=== PATIENT | male | born 1955 | race Caucasian/White ===

== ENCOUNTER → 2019-08-20 | Day surgery (SDC) | payer OTHER ==
[~2019-08-20] MED LIST: ACETAMINOPHEN 325 MG TABLET PO PRN; ALBUTEROL SULFATE 2.5 MG/3 ML NEBU. NEB PRN; ALLO100T PO; AMLO10TA8 PO; ATROPINE 0.5 MG/5 ML DISP.SYRIN. IV PRN; BALANCED SALT IRRIG OPHTH SOLN 15 ML BOTTLE. IRR ONE; CATARACT OPHTH GEL 0.5 ML SYRINGE. OD ONE; CHONDROIT-SOD-HYALURONATE KIT. OD ONE; EPINEPHrine AMPULE 0.5 MG in BALANCED SALT IRRIG SOLN PLUS 500 ML IO ONE; ERYTHROMYCIN 0.5% OPHTH OINTMENT 1GM TUBE. OD ONE; FERR325T14 PO; FOLI0.8C PO; HYALURONIDASE 75UNITS in LIDOCAINE 2% PF OPHTH 10 ML SYRINGE. OD ONE; HYDR-2145 PO; KETOROLAC TROMETHAMINE 0.5% OPHTH SOLUTION BOTTLE. OD SCH; KETOROLAC TROMETHAMINE 0.5% OPHTH SOLUTION BOTTLE. ONE; LIDO/EPI IN BSS OPHTH 8 ML SYRINGE OD PRN; MAGN27TA5 PO; METO25TA4 PO; MOXIFLOXACIN 0.5% OPHTH SOLUTION 3ML BOTTLE. OD SCH; ONDANSETRON PF 4 MG/2 ML VIAL. IV PRN; PHENOL ORAL SPRAY 177ML BOTTLE. MM PRN; POVIDONE-IODINE 5% OPHTH SOLUTION 30ML BOTTLE. OD ONE; PROPOFOL 20 ML IV ONE; TETRACAINE 0.5% OPHTH SOLUTION 4ML BOTTLE. OD ONE; TETRACAINE 0.5% OPHTH SOLUTION 4ML BOTTLE. OU ONE; [UNRECOGNIZED DRUG - OTHER] OU; diphenhydrAMINE 50 MG/ML VIAL IV PRN; prednisoLONE ACETATE 1% OPHTH SUSPENSION 5ML BOTTLE. OD SCH; prednisoLONE ACETATE 1% OPHTH SUSPENSION 5ML BOTTLE. ONE
[2019-08-20] MEDS: MOXIFLOXACIN 0.5% OPHTH SOLUTION 3ML BOTTLE. OD SCH ×3 (08:52→09:03)
--- NOTE | 2019-08-20 09:47 | PDOC4 ---
CATARACT Operative Report DATE DATE: 08/20/19 TIME: 09:46 Operation Performed OPERATIVE REPORT Name: Ailyn Pace Operation Date: Preoperative Diagnosis: 1. Senile cataract, RIGHT eye. 2. Inadequate pupillary dilation. Postoperative Diagnosis: 1. Senile cataract, RIGHT eye. 2. Inadequate pupillary dilation. Operation: 1. Phacoemulsification with posterior chamber intraocular lens implant. 2. Iris stretching via placement of Malyugan ring. Surgeon: Zhen Asif D.O. Anesthesia: Local with monitored anesthesia care Description of Operation: Under cardiac monitoring and mild IV sedation, the patient received peribulbar anesthesia in the holding area. Pressure was applied to the eye with a Honan balloon for approximately 10 minutes. The patient was taken to the operating room and placed in a supine position and the periorbital region was prepped and draped in the usual sterile fashion. A lid speculum was placed between the eyelids. A temporal clear corneal incision was made with a keratome. 1 cc of epi-Shugarcaine was injected into the anterior chamber. Viscoelastic was injected into the eye. A side port incision was made three clock hours to the left of the clear corneal incision. Due to continued poor dilation not responsive to epi-Shugarcaine, a Malyugan ring was placed. A cystotome and capsule forceps were used to make a continuous tear capsulorhexus. Hydrodissection was performed with balanced salt solution. The phacoemulsification needle was placed into the eye and the cataract was removed. The remaining cortical material was removed with the irrigation and aspiration apparatus. The posterior capsule was noted to be clean and intact. Viscoelastic was injected into the eye inflating the capsular bag. A foldable intraocular lens was injected into the eye, unfolding as desired, and positioned in the capsular bag. The Malyugan ring was then removed from the eye. The viscoelastic was aspirated from the eye. The wound edges were hydrated with balanced salt solution. There were no wound leaks. Viscoelastic was injected over the side port and clear corneal incisions. One drop of Vigamox and one drop of prednisolone acetate were instilled into the eye. The lid speculum was removed and a pressure dressing with a David shield was placed over the eye. The patient was taken to the recovery room in good condition. AILYN ASIF DO Aug 20, 2019 09:47
[2019-08-20 10:00] VITALS: BP 141/89
== END | disposition home or self-care (01) ==
LOC: SURG 07:49
PROVIDERS: ATTEND Ophthalmology
DX: H25.11 Age-related nuclear cataract, right eye (principal); J44.9 Chronic obstructive pulmonary disease, unspecified; E78.00 Pure hypercholesterolemia, unspecified; K21.9 Gastro-esophageal reflux disease without esophagitis; D64.9 Anemia, unspecified; I10 Essential (primary) hypertension; Z79.899 Other long term (current) drug therapy; Z98.890 Other specified postprocedural states; Z88.8 Allergy status to other drugs, medicaments and biological substances
CPT/HCPCS: 66982; J0171; J2704; V2632

== ENCOUNTER → 2019-09-10 | Day surgery (SDC) | payer OTHER ==
[~2019-09-10] MED LIST changes: +BALANCED SALT IRRIG OPHTH SOLN 15 ML BOTTLE. ONE; -CATARACT OPHTH GEL 0.5 ML SYRINGE. OD ONE; +CATARACT OPHTH GEL 0.5 ML SYRINGE. ONE; +CATARACT OPHTH GEL 0.5 ML SYRINGE. OS ONE; -CHONDROIT-SOD-HYALURONATE KIT. OD ONE; +CHONDROIT-SOD-HYALURONATE KIT. ONE; +CHONDROIT-SOD-HYALURONATE KIT. OS ONE; -ERYTHROMYCIN 0.5% OPHTH OINTMENT 1GM TUBE. OD ONE; +ERYTHROMYCIN 0.5% OPHTH OINTMENT 1GM TUBE. ONE; +ERYTHROMYCIN 0.5% OPHTH OINTMENT 1GM TUBE. OS ONE; -HYALURONIDASE 75UNITS in LIDOCAINE 2% PF OPHTH 10 ML SYRINGE. OD ONE; +HYALURONIDASE 75UNITS in LIDOCAINE 2% PF OPHTH 10 ML SYRINGE. OS ONE; -KETOROLAC TROMETHAMINE 0.5% OPHTH SOLUTION BOTTLE. OD SCH; +KETOROLAC TROMETHAMINE 0.5% OPHTH SOLUTION BOTTLE. OS SCH; +LIDO/EPI IN BSS OPHTH 4 ML SYRINGE OS ONE; -LIDO/EPI IN BSS OPHTH 8 ML SYRINGE OD PRN; -MOXIFLOXACIN 0.5% OPHTH SOLUTION 3ML BOTTLE. OD SCH; +MOXIFLOXACIN 0.5% OPHTH SOLUTION 3ML BOTTLE. ONE; +MOXIFLOXACIN 0.5% OPHTH SOLUTION 3ML BOTTLE. OS SCH; -PHENOL ORAL SPRAY 177ML BOTTLE. MM PRN; -POVIDONE-IODINE 5% OPHTH SOLUTION 30ML BOTTLE. OD ONE; +POVIDONE-IODINE 5% OPHTH SOLUTION 30ML BOTTLE. ONE; +POVIDONE-IODINE 5% OPHTH SOLUTION 30ML BOTTLE. OS ONE; -TETRACAINE 0.5% OPHTH SOLUTION 4ML BOTTLE. OD ONE; +TETRACAINE 0.5% OPHTH SOLUTION 4ML BOTTLE. ONE; +TETRACAINE 0.5% OPHTH SOLUTION 4ML BOTTLE. OS ONE; +TOBRAMYCIN 0.3% OPHTH SOLUTION 5ML BOTTLE. OS SCH; -prednisoLONE ACETATE 1% OPHTH SUSPENSION 5ML BOTTLE. OD SCH; +prednisoLONE ACETATE 1% OPHTH SUSPENSION 5ML BOTTLE. OS SCH
[2019-09-10] MEDS: MOXIFLOXACIN 0.5% OPHTH SOLUTION 3ML BOTTLE. OS SCH ×3 (08:40→08:50)
--- NOTE | 2019-09-10 09:43 | PDOC4 ---
CATARACT Operative Report DATE DATE: 09/10/19 TIME: 09:39 Operation Performed OPERATIVE REPORT Name: Ailyn Pace Operation Date: Preoperative Diagnosis: 1. Senile cataract, LEFT eye. 2. Inadequate pupillary dilation. Postoperative Diagnosis: 1. Senile cataract, LEFT eye. 2. Inadequate pupillary dilation. Operation: 1. Phacoemulsification with posterior chamber intraocular lens implant. 2. Iris stretching via placement of Malyugan ring. Surgeon: Zhen Asif D.O. Anesthesia: Local with monitored anesthesia care Description of Operation: Under cardiac monitoring and mild IV sedation, the patient received peribulbar anesthesia in the holding area. Pressure was applied to the eye with a Honan balloon for approximately 10 minutes. The patient was taken to the operating room and placed in a supine position and the periorbital region was prepped and draped in the usual sterile fashion. A lid speculum was placed between the eyelids. A temporal clear corneal incision was made with a keratome. 1 cc of epi-Shugarcaine was injected into the anterior chamber. Viscoelastic was injected into the eye. A side port incision was made three clock hours to the left of the clear corneal incision. Due to continued poor dilation not responsive to epi-Shugarcaine, a Malyugan ring was placed. A cystotome and capsule forceps were used to make a continuous tear capsulorhexus. Hydrodissection was performed with balanced salt solution. The phacoemulsification needle was placed into the eye and the cataract was removed. The remaining cortical material was removed with the irrigation and aspiration apparatus. The posterior capsule was noted to be clean and intact. Viscoelastic was injected into the eye inflating the capsular bag. A foldable intraocular lens was injected into the eye, unfolding as desired, and positioned in the capsular bag. The Malyugan ring was then removed from the eye. The viscoelastic was aspirated from the eye. The wound edges were hydrated with balanced salt solution. There were no wound leaks. Viscoelastic was injected over the side port and clear corneal incisions. One drop of Vigamox and one drop of prednisolone acetate were instilled into the eye. The lid speculum was removed and a pressure dressing with a David shield was placed over the eye. The patient was taken to the recovery room in good condition. AILYN ASIF DO Sep 10, 2019 09:43
[2019-09-10 09:51] VITALS: BP 133/77
== END ==
LOC: SURG 08:01
PROVIDERS: ATTEND Ophthalmology
DX: H25.12 Age-related nuclear cataract, left eye (principal); I10 Essential (primary) hypertension; F17.210 Nicotine dependence, cigarettes, uncomplicated; E66.9 Obesity, unspecified; Z68.30 Body mass index [BMI] 30.0-30.9, adult; Z98.890 Other specified postprocedural states
CPT/HCPCS: 66982; J0171; J2704; V2632

== ENCOUNTER 2020-10-31 20:42 | Emergency (ER) | payer OTHER ==
[~2020-10-31] VITALS: Ht 167.6 cm; Wt 90.9 kg
[~2020-10-31 20:42] MED LIST changes: -ACETAMINOPHEN 325 MG TABLET PO PRN; -ALBUTEROL SULFATE 2.5 MG/3 ML NEBU. NEB PRN; +AMLO-187 PO; -AMLO10TA8 PO; -ATROPINE 0.5 MG/5 ML DISP.SYRIN. IV PRN; -BALANCED SALT IRRIG OPHTH SOLN 15 ML BOTTLE. IRR ONE; -BALANCED SALT IRRIG OPHTH SOLN 15 ML BOTTLE. ONE; -CATARACT OPHTH GEL 0.5 ML SYRINGE. ONE; -CATARACT OPHTH GEL 0.5 ML SYRINGE. OS ONE; -CHONDROIT-SOD-HYALURONATE KIT. ONE; -CHONDROIT-SOD-HYALURONATE KIT. OS ONE; -EPINEPHrine AMPULE 0.5 MG in BALANCED SALT IRRIG SOLN PLUS 500 ML IO ONE; -ERYTHROMYCIN 0.5% OPHTH OINTMENT 1GM TUBE. ONE; -ERYTHROMYCIN 0.5% OPHTH OINTMENT 1GM TUBE. OS ONE; -HYALURONIDASE 75UNITS in LIDOCAINE 2% PF OPHTH 10 ML SYRINGE. OS ONE; -KETOROLAC TROMETHAMINE 0.5% OPHTH SOLUTION BOTTLE. ONE; -KETOROLAC TROMETHAMINE 0.5% OPHTH SOLUTION BOTTLE. OS SCH; -LIDO/EPI IN BSS OPHTH 4 ML SYRINGE OS ONE; -MOXIFLOXACIN 0.5% OPHTH SOLUTION 3ML BOTTLE. ONE; -MOXIFLOXACIN 0.5% OPHTH SOLUTION 3ML BOTTLE. OS SCH; -ONDANSETRON PF 4 MG/2 ML VIAL. IV PRN; -POVIDONE-IODINE 5% OPHTH SOLUTION 30ML BOTTLE. ONE; -POVIDONE-IODINE 5% OPHTH SOLUTION 30ML BOTTLE. OS ONE; -PROPOFOL 20 ML IV ONE; -TETRACAINE 0.5% OPHTH SOLUTION 4ML BOTTLE. ONE; -TETRACAINE 0.5% OPHTH SOLUTION 4ML BOTTLE. OS ONE; -TETRACAINE 0.5% OPHTH SOLUTION 4ML BOTTLE. OU ONE; -TOBRAMYCIN 0.3% OPHTH SOLUTION 5ML BOTTLE. OS SCH; -diphenhydrAMINE 50 MG/ML VIAL IV PRN; -prednisoLONE ACETATE 1% OPHTH SUSPENSION 5ML BOTTLE. ONE; -prednisoLONE ACETATE 1% OPHTH SUSPENSION 5ML BOTTLE. OS SCH
[2020-10-31] MEDS ORDERED: IV RINGERS SOLUTION,LACTATED 1,000 ML IV ONE ×2 (21:30→23:45)
[2020-10-31] MEDS ORDERED: ONDANSETRON PF 4 MG/2 ML VIAL. IVP ONE (21:30)
[2020-10-31 22:00] LABS: BASO % 1 % (0-3); EOS % 0 % (0-3); HEMOGLOBIN 9.1 g/dL (13.0-17.5); LYMPH # 0.3 x10^3/uL (1.0-4.8); LYMPH % 6 % (24-48); MEAN CORPUSCULAR HEMOGLOBIN 29 pg (25-35); MEAN CORPUSCULAR HGB CONC 31 g/dL (31-37); MEAN CORPUSCULAR VOLUME 91 fL (79-100); MONO # 0.2 x10^3/uL (0.0-1.1); MONO % 4 % (0-9); NEUT % 90 % (31-73); PLATELET COUNT 120 x10^3/uL (140-400); RED BLOOD COUNT 3.19 x10^6/uL (4.30-5.70); RED CELL DISTRIBUTION WIDTH 18.9 % (11.5-14.5); WHITE BLOOD COUNT 5.5 x10^3/uL (4.0-11.0)
[2020-10-31 22:10] LABS: BILIRUBIN,URINE NEG (NEG); CLARITY,URINE HAZY; COLOR,URINE YELLOW; GLUCOSE,URINE NEG (NEG)
[2020-10-31 22:11] LABS: BACTERIA,URINE 0 /HPF (0-FEW); HYALINE CASTS, URINE FEW /HPF; NITRITE,URINE NEG (NEG); SQUAMOUS EPITHELIAL CELL,UR FEW /LPF; UROBILINOGEN,URINE 0.2 mg/dL (0.2 mg/dL); WBC,URINE 0 /HPF (0-4)
[2020-10-31 22:16] LABS: CALCIUM 8.5 mg/dL (8.5-10.1); CREATININE 1.5 mg/dL (0.7-1.3); GFR 47.1; POTASSIUM 4.1 mmol/L (3.5-5.1)
[2020-10-31 22:22] LABS: ALBUMIN 2.8 g/dL (3.4-5.0); ALBUMIN/GLOBULIN RATIO 0.6 (1.0-1.7); TOTAL BILIRUBIN 0.3 mg/dL (0.2-1.0); TOTAL PROTEIN 7.8 g/dL (6.4-8.2)
[2020-10-31 22:24] LABS: % LYMPHS 8 % (24-48); % MONOS 2 % (0-10); % SEGS 90 % (35-66)
[2020-10-31 22:25] LABS: PLT ESTIMATE DECREASED (ADEQUATE)
[2020-10-31] MEDS ORDERED: CONTRAST GIVEN. MC PRN (22:30)
[2020-10-31] MEDS ORDERED: MORPHINE SULFATE 4 MG/ML DISP.SYRIN. IV ONE (23:00)
[2020-10-31] MEDS ORDERED: IOHEXOL 300 MG/ML 75 ML VIAL. IV ONE (23:00)
--- NOTE | 2020-10-31 23:45 | PHYS DOC ---
Past History Past Medical History: Alcoholism, Hypertension Past Surgical History: Other Additional Past Surgical Histo: HERNIA REPAIR Alcohol Use: Heavy Adult General Chief Complaint Chief Complaint: NAUSEA/VOMITING/DIARRHEA HPI HPI Patient is a 65-year-old male with a past medical history significant for alcoholic cirrhosis who presents to the emergency department with a chief complaint of nausea and vomiting. States that he had his last drink of vodka a pproximately 2 to 3 days ago. States that not long after that he began to have some stomach cramping, nausea and nonbloody nonbilious vomiting. States he had been able to really eat or drink anything since then. Denies ever having alcoholic seizures or delirium tremens. Denies any recent travel, traumas, illnesses, fevers, Covid/flu/cold symptoms, chest pain, shortness of breath, dysuria, hematuria or blood in the stool. States he has had some soft stool for the last couple of days as well. Review of Systems Review of Systems Review of systems otherwise unremarkable except noted in HPI Current Medications Current Medications Current Medications Medications (Trade) Dose Ordered Sig/Rosaura Start Time Stop Time Status Last Admin Dose Admin Info (Do NOT chart on this entry -- for MONITORING) 1 each PRN DAILY PRN 10/31/20 22:30 11/02/20 22:29 Iohexol (Omnipaque 300 Mg/ml) 75 ml 1X ONCE 10/31/20 23:00 10/31/20 23:01 DC 10/31/20 23:17 60 ML Lactated Ringer's 1,000 ml @ 1,000 mls/hr 1X ONCE 10/31/20 23:45 11/01/20 00:44 Morphine Sulfate (Morphine 4mg Syringe) 4 mg 1X ONCE 10/31/20 23:00 10/31/20 23:01 DC Ondansetron HCl (Zofran) 4 mg 1X ONCE 10/31/20 21:30 10/31/20 21:31 DC 10/31/20 21:27 4 MG Piperacillin Sod/ Tazobactam Sod 3.375 gm/Sodium Chloride 50 ml @ 100 mls/hr 1X ONCE 11/01/20 00:00 11/01/20 00:29 Allergies Allergies Allergies Coded Allergies Type Severity Reaction Last Updated Verified hydrocodone Allergy Unknown 08/14/19 Yes Physical Exam Physical Exam Constitutional: Well developed, well nourished, no acute distress, appears ill. [] HENT: Normocephalic, atraumatic, bilateral external ears normal, oropharynx moist, no oral exudates, nose normal. [] Eyes: conjunctiva normal, no discharge. [] Neck: Normal range of motion, no tenderness, supple, no stridor. [] Cardiovascular: Sinus tachycardia Lungs & Thorax: Bilateral breath sounds clear to auscultation [] Abdomen: Bowel sounds normal, soft, no tenderness, no masses, no pulsatile masses. [] Skin: Warm, dry, no erythema, no rash. [] Back: No tenderness, no CVA tenderness. [] Extremities: No tenderness, no cyanosis, no clubbing, ROM intact, no edema. [] Neurologic: Alert and oriented X 3, normal motor function, normal sensory function, no focal deficits noted. [] Psychologic: Affect normal, judgement normal, mood normal. [] Current Patient Data Vital Signs Vital Signs Date Time Temp Pulse Resp B/P (MAP) Pulse Ox O2 Delivery O2 Flow Rate FiO2 10/31/20 21:01 98.3 128 20 157/102 (120) 99 Room Air Lab Results Laboratory Tests Test 10/31/20 21:20 10/31/20 21:40 White Blood Count 5.5 x10^3/uL (4.0-11.0) Red Blood Count 3.19 x10^6/uL (4.30-5.70) L Hemoglobin 9.1 g/dL (13.0-17.5) L Hematocrit 29.0 % (39.0-53.0) L Mean Corpuscular Volume 91 fL (79-100) Mean Corpuscular Hemoglobin 29 pg (25-35) Mean Corpuscular Hemoglobin Concent 31 g/dL (31-37) Red Cell Distribution Width 18.9 % (11.5-14.5) H Platelet Count 120 x10^3/uL (140-400) L Neutrophils (%) (Auto) 90 % (31-73) H Lymphocytes (%) (Auto) 6 % (24-48) L Monocytes (%) (Auto) 4 % (0-9) Eosinophils (%) (Auto) 0 % (0-3) Basophils (%) (Auto) 1 % (0-3) Neutrophils # (Auto) 5.0 x10^3uL (1.8-7.7) Lymphocytes # (Auto) 0.3 x10^3/uL (1.0-4.8) L Monocytes # (Auto) 0.2 x10^3/uL (0.0-1.1) Eosinophils # (Auto) 0.0 x10^3/uL (0.0-0.7) Basophils # (Auto) 0.0 x10^3/uL (0.0-0.2) Segmented Neutrophils % 90 % (35-66) H Lymphocytes % 8 % (24-48) L Monocytes % 2 % (0-10) Platelet Estimate Decreased (ADEQUATE) Sodium Level 141 mmol/L (136-145) Potassium Level 4.1 mmol/L (3.5-5.1) Chloride Level 101 mmol/L (98-107) Carbon Dioxide Level 15 mmol/L (21-32) L Anion Gap 25 (6-14) H Blood Urea Nitrogen 34 mg/dL (8-26) H Creatinine 1.5 mg/dL (0.7-1.3) H Estimated GFR (Cockcroft-Gault) 47.1 BUN/Creatinine Ratio 23 (6-20) H Glucose Level 118 mg/dL (70-99) H Calcium Level 8.5 mg/dL (8.5-10.1) Total Bilirubin 0.3 mg/dL (0.2-1.0) Aspartate Amino Transferase (AST) 99 U/L (15-37) H Alanine Aminotransferase (ALT) 44 U/L (16-63) Alkaline Phosphatase 213 U/L (46-116) H Total Protein 7.8 g/dL (6.4-8.2) Albumin 2.8 g/dL (3.4-5.0) L Albumin/Globulin Ratio 0.6 (1.0-1.7) L Lipase 216 U/L (73-393) Urine Collection Type Unknown Urine Color Yellow Urine Clarity Hazy Urine pH 5.5 Urine Specific Arnold 1.025 Urine Protein >100 mg/dl (NEG-TRACE) Urine Glucose (UA) Neg mg/dL (NEG) Urine Ketones (Stick) 15 mg/dL (NEG) Urine Blood Mod (NEG) Urine Nitrite Neg (NEG) Urine Bilirubin Neg (NEG) Urine Urobilinogen Dipstick 0.2 mg/dL (0.2 mg/dL) Urine Leukocyte Esterase Neg (NEG) Urine RBC 3-5 /HPF (0-2) Urine WBC 0 /HPF (0-4) Urine Squamous Epithelial Cells Few /LPF Urine Bacteria 0 /HPF (0-FEW) Urine Hyaline Casts Few /HPF EKG EKG [] Radiology/Procedures Radiology/Procedures []CT SCAN OF THE ABDOMEN AND PELVIS WITH IV CONTRAST. History: Reason: epigastric pain Comparison:None. Procedure: Contiguous axial images of the abdomen and pelvis were performed after the administration of 60 cc of Omni 300 IV contrast. Oral contrast: No. Findings: There are numerous stones in the gallbladder but no wall thickening or stranding fluid or inflammation. There is a fat-containing inguinal canal hernia on the left. The prostate is not significantly enlarged. Liver: Hypoattenuation with lobulated surface of the liver Spleen: Unremarkable Pancreas: There are 2 cystic lesions arising from the head of the pancreas posteriorly and inferiorly the larger measures 1.4 x 2.4 cm. The pancreas is al so somewhat lobulated. Adrenal Glands: Unremarkable Kidneys: Small cysts bilaterally There is no mass or lymphadenopathy. There is no free air. There is no free fluid. The urinary bladder is mostly collapsed. The colon is collapsed limiting its evaluation. There is moderate diverticulosis sigmoid colon without surrounding inflammation. There are surgical clips anteriorly in the pelvis consistent with prior hernia repair. Impression: 1. Fatty infiltration of the liver and cirrhosis. 2. Cholelithiasis without evidence of acute cholecystitis. 3. At least 2 cystic lesions in the head of the pancreas however the pancreas is also somewhat lobulated. A pancreatic neoplasm is possible. Consider follow-up endoscopy versus MRI with without contrast. XR CHEST 1V Clinical History: Reason: infectious workup / Spl. Instructions: / History: Technique: AP view of the chest was obtained at 11/01/2020 12:23 AM. Comparison: None. Findings: The cardiomediastinal silhouette is normal. The pulmonary vasculature is normal. The lungs and pleural margins are clear. Impression: No evidence of an acute cardiopulmonary process. Electronically signed by: Kike Marin III, MD (11/01/2020 12:49 AM) [facility] Heart Score C/O Chest Pain: No Risk Factors: Risk Factors: DM, Current or recent (<one month) smoker, HTN, HLP, family history of CAD, obesity. Risk Scores: Risk Factors: DM, Current or recent (<one month) smoker, HTN, HLP, family history of CAD, obesity. Course & Med Decision Making Course & Med Decision Making Patient is a 65-year-old male who presents with intractable nausea and vomiting 2 days after cessation of alcohol Vital signs notable for tachycardia and hypertension. Physical exam noted above. Given Zofran for nausea and morphine for pain. Given folate and thiamine. Given Ativan. Laboratory analysis notable for anemia and thrombocytopenia as well as GHAZAL and anion gap metabolic acidosis with a lactate of 4.5. [] Chest x-ray not concerning. Urinalysis not concerning. CT of the abdomen pelvis notable for cirrhosis of the liver as well as concerning cystic lesions on the head of the pancreas. Given patient's tachycardia, abdominal findings on CT, and elevated lactate there is concern for infection so Cultures obtained and antibiotics given. Discussed all findings with patient and recommended transfer admission to [place] for continued evaluation of his intractable nausea, alcohol withdrawal and need for further imaging/GI consult for his pancreatic lesions. Patient grateful, verbalized understanding and agreed with plan of transfer and admission. Dragon Disclaimer Dragon Disclaimer This electronic medical record was generated, in whole or in part, using a voice recognition dictation system. Departure Departure: Impression: Primary Impression: Metabolic acidemia Additional Impressions: Lactic acidosis Anemia Thrombocytopenia GHAZAL (acute kidney injury) Intractable nausea and vomiting Alcohol withdrawal Disposition: 02 DC/TRF OTHER SHORT TERM HOS Admitting Physician: Samuel Patterson Condition: IMPROVED Referrals: NON,STAFF (PCP) Problem Qualifiers MP VELA MD Oct 31, 2020 23:45
--- NOTE | 2020-10-31 23:51 | RAD ---
CT SCAN OF THE ABDOMEN AND PELVIS WITH IV CONTRAST. History: Reason: epigastric pain Comparison:None. Procedure: Contiguous axial images of the abdomen and pelvis were performed after the administration of 60 cc o f Omni 300 IV contrast. Oral contrast: No. Findings: There are numerous stones in the gallbladder but no wall thickening or stranding fluid or inflammatio n. There is a fat-containing inguinal canal hernia on the left. The prostate is not significantly enlarged. Liver: Hypoattenuation with lobulated surface of the liver Spleen: Unremarkable Pancreas: There are 2 cystic lesions arising from the head of the pancreas posteriorly and inferiorly the larger measures 1.4 x 2.4 cm. The pancreas is also somewhat lobulated. Adrenal Glands: Unremarkable Kidneys: Small cysts bilaterally There is no mass or lymphadenopathy. There is no free air. There is no free fluid. The urinary bladder is mostly collapsed. The colon is collapsed limiting its evaluation. There is moderate diverticulosis sigmoid colon withou t surrounding inflammation. There are surgical clips anteriorly in the pelvis consistent with prior hernia repair. Impression: 1. Fatty infiltration of the liver and cirrhosis. 2. Cholelithiasis without evidence of acute cholecystitis. 3. At least 2 cystic lesions in the head of the pancreas however the pancreas is also somewhat lobula chemo. A pancreatic neoplasm is possible. Consider follow-up endoscopy versus MRI with without contrast . End impression PQRS Compliance Statement: One or more of the following individualized dose reduction techniques were utilized for this examinat ion: 1. Automated exposure control 2. Adjustment of the mA and/or kV according to patient size 3. Use of iterative reconstruction technique Electronically signed by: Kike Marin III, MD (10/31/2020 11:48 PM) [facility]
[2020-11-01] MEDS ORDERED: PIPERACILLIN/TAZOBACTAM 3.375 GM in IV NORMAL SALINE 50ML 50 ML IV ONE
[2020-11-01] MEDS ORDERED: IV NORMAL SALINE 50ML 50 ML ONE ×3 (00:28→01:58)
[2020-11-01] MEDS ORDERED: PIPERACILLIN/TAZOBACTAM 3.375 GM VIAL IV ONE ×2 (00:28→00:30)
--- NOTE | 2020-11-01 00:52 | RAD ---
XR CHEST 1V Clinical History: Reason: infectious workup / Spl. Instructions: / History: Technique: AP view of the chest was obtained at 11/01/2020 12:23 AM. Comparison: None. Findings: The cardiomediastinal silhouette is normal. The pulmonary vasculature is normal. The lungs and pleura l margins are clear. Impression: No evidence of an acute cardiopulmonary process. Electronically signed by: Kike Marin III, MD (11/01/2020 12:49 AM) [facility]
[2020-11-01] MEDS ORDERED: THIAMINE 200 MG/2 ML VIAL. IV ONE (01:58)
[2020-11-01] MEDS ORDERED: THIAMINE INJ 100 MG in IV NORMAL SALINE 50ML 50 ML IV SCH (02:00)
[2020-11-01] MEDS ORDERED: ONDANSETRON PF 4 MG/2 ML VIAL. IVP ONE (02:00)
[2020-11-01] MEDS ORDERED: FOLIC ACID 1 MG TABLET PO ONE (02:00)
[2020-11-01 03:17] VITALS: BP 150/98
--- NOTE | 2020-11-01 12:26 | EKG ---
[address] [address] Test Date: 2020-11-01 Test Time: 02:58:56 Pat Name: AILYN KAUFMAN Department: Room: Gender: M [employer] Director: MATIAS : [id number] Requested By: MP VELA Order Number: [id number] Reading MD: Measurements Intervals [place] Rate: 112 P: 90 CT: 162 QRS: 18 QRSD: 78 T: 28 QT: 344 QTc: 471 Interpretive Statements SINUS TACHYCARDIA OTHERWISE NORMAL ECG RI6.02 No previous ECG available for comparison
== END 2020-11-01 04:03 | disposition short-term general hospital (02) ==
LOC: ER 20:42
DX: N17.9 Acute kidney failure, unspecified (principal); E87.2 Acidosis; D64.9 Anemia, unspecified; D69.6 Thrombocytopenia, unspecified; F10.239 Alcohol dependence with withdrawal, unspecified; R11.2 Nausea with vomiting, unspecified; I10 Essential (primary) hypertension; Z88.5 Allergy status to narcotic agent; Y90.9 Presence of alcohol in blood, level not specified
CPT/HCPCS: 36415; 71045; 74177; 80053; 81001; 82803; 83690; 84484; 85007; 85025; 93005; 96361; 96365; 96367; 96375; 96376; 99285; J2060; J2270; J2405; J2543; J7120; Q9967